=== PATIENT | female | born 1995 | race American Indian/Alaskan Native ===

== ENCOUNTER 2017-10-29 15:51 | Emergency (ER) | payer OTHER ==
[2017-10-29] MEDS ORDERED: MOTRIN PO ONE ×3 (18:14→18:21)
[2017-10-29] MEDS ORDERED: ULTRAM PO ONE (22:57)
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
[2017-10-29 23:20] LABS: Basophils % (Auto) 0.2 % (0.0-1.8); Eosinophils # (Auto) 0.1 K/mm3 (0.0-0.4); Eosinophils % (Auto) 0.9 % (0.0-4.3); Hemoglobin 12.2 gm/dl (10.1-14.3); Lymphocytes # (Auto) 1.2 K/mm3 (1.2-5.4); Lymphocytes % (Auto) 16.6 % (13.4-35.0); Mean Corpuscular HGB Conc 35 % (30-34); Mean Corpuscular Hemoglobin 30 pg (28-32); Mean Corpuscular Volume 85 fl (79-97); Monocytes # (Auto) 0.3 K/mm3 (0.0-0.8); Platelet Count 205 K/mm3 (140-440); Red Blood Count 4.12 M/mm3 (3.65-5.03); Red Cell Distribution Width 13.4 % (13.2-15.2)
[2017-10-29 23:42] LABS: Alanine Aminotransferase 11 units/L (7-56); Albumin 4.1 g/dL (3.9-5); BUN/Creatinine Ratio 10; Blood Urea Nitrogen 7 mg/dL (7-17); Hemolysis Index 0
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
[2017-10-30] MEDS ORDERED: TRIPLE ANTIBIOTIC TP ONE (01:37)
[2017-10-30 02:07] VITALS: BP 110/79
== END 2017-10-30 02:07 | disposition home or self-care (01) ==
LOC: ED 15:51
DX: S10.91XA Abrasion of unspecified part of neck, initial encounter (principal); S00.81XA Abrasion of other part of head, initial encounter; M54.9 Dorsalgia, unspecified; R10.9 Unspecified abdominal pain; R07.89 Other chest pain; V49.49XA Driver injured in collision with other motor vehicles in traffic accident, initial encounter; Y93.89 Activity, other specified; Y92.89 Other specified places as the place of occurrence of the external cause; Y99.8 Other external cause status
CPT/HCPCS: 36415; 71260; 74177; 80053; 84703; 85025; 99284; Q9967; A6250